=== PATIENT | female | born 1940 ===

== ENCOUNTER 2018-08-28 11:08 | Outpatient (CLI) | payer OTHER ==
[~2018-08-28] VITALS: Ht 160 cm; Wt 59.0 kg
[2018-08-28] MEDS ORDERED: CLARITIN10 MG PO (11:22)
[2018-08-28] MEDS ORDERED: MEDROL4 MG PO (11:23)
[2018-08-28] MEDS ORDERED: CEFUROXIME500 MG PO (11:23)
[2018-08-28] MEDS ORDERED: FLONASE16 GM NASAL (11:23)
== END 2018-08-28 14:15 | disposition home or self-care (01) ==
LOC: OFIC 805 11:08
DX: J32.8 Other chronic sinusitis (principal); J33.8 Other polyp of sinus; J34.2 Deviated nasal septum; R22.0 Localized swelling, mass and lump, head

== ENCOUNTER 2018-09-18 09:41 | Outpatient (CLI) | payer OTHER ==
[~2018-09-18] VITALS: Ht 152.4 cm; Wt 59.0 kg
[~2018-09-18 09:41] MED LIST: CEFUROXIME500 MG PO; CLARITIN10 MG PO; FLONASE16 GM NASAL; MEDROL4 MG PO
[2018-09-18] MEDS ORDERED: FLONASE16 GM NASAL (12:05)
[2018-09-18] MEDS ORDERED: CLARITIN10 MG PO (12:05)
== END 2018-09-18 10:00 | disposition home or self-care (01) ==
LOC: OFIC 805 09:41
DX: J32.8 Other chronic sinusitis (principal); J34.2 Deviated nasal septum; J33.8 Other polyp of sinus